=== PATIENT | male | born 1965 | race Caucasian/White ===

== ENCOUNTER 2019-07-02 21:55 | Emergency (ER) | payer SELFPAY ==
--- NOTE | 2019-07-03 00:35 | ER Document Report ---
ED General - General Chief Complaint: ETOH Abuse Stated Complaint: DETOX Time Seen by Provider: 07/02/19 22:54 Primary Care Provider: PRESTON SWAIN [NO LOCAL MD] - Follow up as needed Notes: 54-year-old male presents emergency department complaining of asthma for the past 7 to 8 months, complains of cough and wheezing as well. Initially patient states that it worsened this evening and then tells me that he is having no chest pain, no shortness of breath, no cough and no wheezing. When asked why he told me that he was having shortness of breath and then he told me he was not having shortness of breath patient states "I know that does not make sense it does it." Patient admits to drinking 1-1/2 pints of alcohol this evening. - Related Data Allergies/Adverse Reactions: Penicillins Allergy (Verified 07/03/19 00:03) Past Medical History - General Information source: Patient - Social History Smoking Status: Unknown if Ever Smoked Frequency of alcohol use: Heavy Drug Abuse: None Family History: Reviewed & Not Pertinent Patient has suicidal ideation: No Patient has homicidal ideation: No Review of Systems - Review of Systems Constitutional: No symptoms reported Cardiovascular: See HPI Respiratory: See HPI -: Yes All other systems reviewed and negative Physical Exam - Vital signs Vitals: Temp Pulse Resp BP Pulse Ox 97.5 F 77 16 140/98 H 97 07/02/19 22:05 07/02/19 22:05 07/02/19 22:05 07/02/19 22:05 07/02/19 22:05 Interpretation: Hypertensive - Notes Notes: GENERAL: Patient sleeping in the hallway bed, takes quite a bit of effort to wake him up, when you set him up he is swaying back and forth and very unsteady, falls asleep frequently even when sitting up. Eventually is able to answer all of my questions though his answers do not always make sense. Appears quite intoxicated, smells of alcohol. HEAD: Normocephalic, atraumatic EYES: Pupils equal, round and reactive to light, extraocular movements intact. ENT: Oral mucosa moist, tongue midline. NECK: Full range of motion, supple, trachea midline. LUNGS: Clear to auscultation bilaterally, no wheezes, rales or rhonchi, no respiratory distress. HEART: Regular rate and rhythm, no murmurs, gallops, rubs. ABDOMEN: Soft, nontender, nondistended, bowel sounds present in all 4 quadrants. EXTREMITIES: Moves all 4 extremities spontaneously, no edema, radial and do rsalis pedis pulses 2/4 bilaterally. No cyanosis. NEUROLOGICAL: Sleeping as above, when he finally wakes up he is oriented x3, normal speech, facial droop, biceps and patellar DTRs 2+ bilaterally. PSYCH: Moderately intoxicated. SKIN: Warm, Dry, normal turgor, no rashes or lesions noted. Course - Re-evaluation Re-evalutation: 07/03/19 01:36 CBC unremarkable, CMP shows sodium elevated at 146, otherwise unremarkable, serum alcohol level is 378. While discussing this finding with nursing staff nursing informs me that patient was actually sent over from [place] [facility] because his alcohol level on the breathalyzer was greater than 400. [facility] is sent him here for medical clearance and to keep him until his alcohol level is less than 200. I will schedule a repeat alcohol level to be drawn at 8 AM. If it is less than 200 patient can be reassessed and then sent back to [facility] for help with detox if he still wants it. 07/03/19 02:33 CT scan of head and CXR are negative. Patient's presentation is consistent with acute alcohol intoxication. Patient will remain in the ED until his MATEUSZ is less than 200 and then be transferred back to [facility] if he is agreeable. 07/03/19 02:34 No evidence of any respiratory distress or respiratory problems at this time. No indication for breathing treatments or steroids. - Vital Signs Vital signs: Temp Pulse Resp BP Pulse Ox 97.5 F 77 16 140/98 H 97 07/02/19 22:05 07/02/19 22:05 07/02/19 22:05 07/02/19 22:05 07/02/19 22:05 - Laboratory Result Diagrams: 07/03/19 00:45 07/03/19 00:45 Laboratory results interpreted by me: 07/03/19 07/03/19 00:45 00:45 RDW 14.1 H Sodium 146.0 H Serum Alcohol 378 H* Discharge - Discharge Clinical Impression: Alcohol abuse Alcohol intoxication Qualifiers: Complication of substance-induced condition: uncomplicated Qualified Code(s): F10.920 - Alcohol use, unspecified with intoxication, uncomplicated Condition: Stable Disposition: HOME, SELF-CARE Referrals: LOCAL,NO [NO LOCAL MD] - Follow up as needed
[2019-07-03 01:02] LABS: ABSOLUTE EOSINOPHILS # (AUTO) 0.3 10^3/uL (0.0-0.6); ABSOLUTE MONOCYTES (AUTO) 0.4 10^3/uL (0.1-1.4); ABSOLUTE NEUT (AUTO) 2.7 10^3/uL (1.7-8.2); BASOPHILS % (AUTO) 0.9 % (0-2); EOSINOPHILS % (AUTO) 4.9 % (0-6); HEMATOCRIT 47.5 % (37.9-51.0); HEMOGLOBIN 16.3 g/dL (13.5-17.0); LYMPHOCYTES % (AUTO) 37.3 % (13-45); MEAN CORPUSCULAR HEMOGLOBIN 30.6 pg (27.0-33.4); MEAN CORPUSCULAR HGB CONC 34.2 g/dL (32.0-36.0); MEAN CORPUSCULAR VOLUME 90 fl (80-97); MONOCYTES % (AUTO) 7.8 % (3-13); PLATELET COUNT 227 10^3/uL (150-450); RED BLOOD COUNT 5.31 10^6/uL (4.35-5.55); RED CELL DISTRIBUTION WIDTH 14.1 % (11.5-14.0); SEGMENTED NEUTROPHILS % (AUTO) 49.1 % (42-78); TOTAL CELLS COUNTED % (AUTO) 100 %; WHITE BLOOD COUNT 5.4 10^3/uL (4.0-10.5)
[2019-07-03 01:15] LABS: ALBUMIN 4.1 g/dL (3.5-5.0); ALKALINE PHOSPHATASE 125 U/L (38-126); ANION GAP 10 (5-19); ASPARTATE AMINO TRANSFERASE 55 U/L (17-59); BILIRUBIN,DIRECT 0.1 mg/dL (0.0-0.4); BILIRUBIN,TOTAL 0.4 mg/dL (0.2-1.3); BLOOD UREA NITROGEN 8 mg/dL (7-20); CALCIUM 9.1 mg/dL (8.4-10.2); CARBON DIOXIDE 29 mmol/L (22-30); CHLORIDE 107 mmol/L (98-107); GLUCOSE 90 mg/dL (75-110); POTASSIUM 4.2 mmol/L (3.6-5.0); TOTAL PROTEIN 6.6 g/dL (6.3-8.2)
[2019-07-03 01:28] LABS: ALCOHOL 378 mg/dL (NONE DETECTED)
--- NOTE | 2019-07-03 02:28 | RADIOLOGY REPORT (SQ) ---
CLINICAL HISTORY: SOB COMPARISON: None. TECHNIQUE: XR CHEST 1 VIEW 07/02/2019 11:19 PM CDT FINDINGS: Cardiac silhouette is normal in size. Lungs are clear without consolidation, atelectasis, mass or edema. There is no pleural effusion. There is no pneumothorax. There are no acute osseous findings. IMPRESSION: Clear lungs.
--- NOTE | 2019-07-03 02:29 | RADIOLOGY REPORT (SQ) ---
CLINICAL HISTORY: confusion, AMS, alcohol 378 COMPARISON: None. TECHNIQUE: CT HEAD WITHOUT IV CONTRAST on 07/03/2019 12:00 AM CDT This exam was performed according to our departmental dose-optimization program, which includes automated exposure control, adjustment of the mA and/or kV according to patient size and/or use of iterative reconstruction technique. FINDINGS: There is no acute hemorrhage, mass effect or midline shift. Maharaj-white differentiation is preserved. There is no hydrocephalus. There is no significant volume loss for age. The calvarium is intact. Orbits and globes are unremarkable. The paranasal sinuses are clear. Mastoid air cells are clear. IMPRESSION: No acute intracranial findings.
--- NOTE | 2019-07-03 11:06 | ER Document Report ---
Doctor's Note Notes: 07/03/19 11:05 The nurses communicated with [facility] earlier and they indicated they would take the patient when his alcohol level is below 200. At this time his alcohol level is 172. He will be discharged to go over to the [facility] detox center.
[2019-07-03 11:48] VITALS: BP 140/100
== END 2019-07-03 12:02 ==
LOC: ER 21:55
DX: F10.120 Alcohol abuse with intoxication, uncomplicated (principal); Y90.8 Blood alcohol level of 240 mg/100 ml or more; Z88.0 Allergy status to penicillin
CPT/HCPCS: 36415; 70450; 71045; 80053; 80307; 85025; 99285